=== PATIENT | male | born 1950 | race Caucasian/White ===

== ENCOUNTER 2021-09-19 17:14 | Outpatient (REF) | payer MEDICARE, SELFPAY ==
[2021-09-19 21:51] LABS: ALT 31 U/L (16-63); AST 17 U/L (15-37); Albumin 3.6 g/dL (3.4-5.0); Alkaline Phosphatase 73 U/L (46-116); Anion Gap 7.4 mmol/L (3-11); BUN 16 mg/dL (7-18); Bilirubin, Total 0.7 mg/dL (0.2-1.0); CO2 26.6 mmol/L (21.0-32.0); CREATININE 0.8 mg/dL (0.70-1.30); Calcium 8.8 mg/dL (8.5-10.1); Calculated LDL 71 mg/dL (<100); Chloride 107 mmol/L (98-107); Cholesterol 165 mg/dL (<200); Glucose 97 mg/dL (74-106); HDL Cholesterol 54 mg/dL (40-60); Potassium 4.4 mmol/L (3.5-5.1); Sodium 141 mmol/L (136-145); Total Protein 6.8 g/dL (6.4-8.2); Triglyceride 200 mg/dL (<150)
== END 2021-09-19 17:15 | disposition home or self-care (01) ==
LOC: NCHCN 17:14
PROVIDERS: Visit Provider Nurse Practitioner Family
DX: M85.88 Other specified disorders of bone density and structure, other site (principal); Z00.00 Encounter for general adult medical examination without abnormal findings
CPT/HCPCS: 80053; 80061; 82306

== ENCOUNTER 2022-10-04 17:55 | Outpatient (REF) | payer MEDICARE, SELFPAY ==
[2022-10-04 21:13] LABS: Abs Immature Grans 0.02 10^3/uL (0.0-0.06); Absolute Basophil Count 0.12 10^3/uL (0.0-0.2); Absolute Lymphocyte Count 3.41 10^3/uL (1.2-3.4); Absolute Monocyte Count 0.57 10^3/uL (0.1-0.8); Absolute Neutrophil Count 4.58 10^3/uL (1.2-6.7); Basophils % 1.3; Eosinophils % 2.2; HCT 47.8 % (40.0-50.0); HGB 15.7 g/dL (13.5-17.5); Immature Grans % 0.2; Lymphocytes % 38.3; MCH 28.5 pg (27.0-33.0); MCHC 32.8 % (32.0-36.0); MCV 87 fL (80-95); MPV 10.7 fL (8.0-11.0); Monocytes % 6.4; Neutrophils % 51.6; Platelet Count 307 10^3/uL (130-400); RDW 14.1 % (11.8-14.1); RDW-SD 45.2 fL
[2022-10-04 21:26] LABS: Iron 59 ug/dL (65-175); Total Iron Binding Capacity 397 ug/dL (250-450); Transferrin Sat 15 % (20-55)
[2022-10-04 21:42] LABS: ALT 28 U/L (16-63); AST 24 U/L (15-37); Albumin 3.8 g/dL (3.4-5.0); Alkaline Phosphatase 67 U/L (46-116); Anion Gap 4.9 mmol/L (3-11); BUN 10 mg/dL (7-18); Bilirubin, Total 0.7 mg/dL (0.2-1.0); CO2 26.1 mmol/L (21.0-32.0); CREATININE 0.9 mg/dL (0.70-1.30); Calcium 9.3 mg/dL (8.5-10.1); Chloride 107 mmol/L (98-107); Estimated GFR 90.18 (mL/min/1.73m2); Ferritin 28 ng/mL (26-388); Glucose 97 mg/dL (74-106); Sodium 138 mmol/L (136-145)
[2022-10-04 22:03] LABS: FREE T4 0.91 ng/dL (0.76-1.46)
[2022-10-05 18:24] LABS: PSA, Screening 8.6 ng/mL (<=6.5)
== END 2022-10-04 17:56 | disposition home or self-care (01) ==
LOC: NCHCN 17:55
PROVIDERS: Visit Provider Family Medicine
DX: E04.1 Nontoxic single thyroid nodule (principal); M85.88 Other specified disorders of bone density and structure, other site; Z12.5 Encounter for screening for malignant neoplasm of prostate; E61.1 Iron deficiency; R97.20 Elevated prostate specific antigen [PSA]
CPT/HCPCS: 80053; 84153; 82728; 83540; 83550; 84439; 84443; 85025

== ENCOUNTER → 2024-04-02 02:01 | Outpatient (CLI) | payer MEDICARE, SELFPAY ==
--- NOTE | 2024-04-02 | DI.US_ITS ---
Exam(s) US THYROID EXAM: US Thyroid CLINICAL HISTORY: Lt thyroid nodule, large heterogeneous mixed cystic and solid, E04.1. TECHNIQUE: Ultrasound thyroid performed using standard protocol. COMPARISON: This patient has had prior thyroid imaging studies as well as prior left thyroid lobe bi [facility]. He denies being told that he ever had a cancer diagnosis of the thyroid. At the time of this dictation the prior thyroid imaging studies and pathology report have not been obta ined. FINDINGS: RIGHT THYROID LOBE: Measures 1.4 cm AP x 1.1 cm wide x 4.9 cm craniocaudal There are 2 small sub cm findings in the right lobe which are not significant at this time. Main fin dings are in the left lobe. ISTHMUS: Normal thickness. There are no nodules in the isthmus. LEFT THYROID LOBE: Measures 3.3 cm AP x 3.4 wide x 5 cm craniocaudal There are 3 findings/nodules in the left lobe which will be discussed starting with the most superior . Nodule #1. This nodule is located superolaterally and measures 0.9 by 0.7 x 0.6 cm Tirads grading for this nodule is as follows: Composition: Solid-2 points Echogenicity: Isoechoic to surrounding parenchyma-1 point Shape: Slightly taller than wider in the transverse plane-3 points Margin: Smooth-0 points Echogenic Foci: Contains both peripheral and punctate echogenic foci-5 points Total points for this nodule: 11 ACR Ti-Rads Category: 5 This suspicious appearing nodule measures slightly less than 1 cm (0.9 cm in longest measurement whic h is craniocaudal) and therefore fall slightly short of requiring ultrasound-guided FNA. With regards to the remaining 2 findings in the left thyroid lobe common is difficult to determine if the more superior of these 2 is actually part of the more inferior nodule. There will be discussed separately as they are significantly different in appearance. Nodule #2 Size: Measures 2.8 x 3.3 x 2.1 cm Composition: Appears cystic with constantly moving echogenic foci therein Echogenicity: Shape: Wider than taller in the transverse plane-0 points Margin: Smooth-0 points Echogenic Foci: Not applicable as all internal contents are in constant motion Total Points for this nodule: Not graded ACR Ti-Rads Category: Not graded Nodule #3 . This is the largest finding which occupies the lower half of the left lobe and measures 4.6 x 3.6 x 3.5 cm. Composition: Partially solid partially cystic-mixed= 1 point Echogenicity: Solid components are isoechoic to the gland parenchyma= 1 point Shape: Taller than wider in the transverse plane-3 points Margin: Smooth-0 points Echogenic Foci: Contains punctate echogenic foci-3 points Total points for this nodule: 8 ACR Ti-Rads Category: 5 This TR 5 level nodule should undergo ultrasound-guided FNA as it measures greater than 1 cm. LYMPH NODES: There is no significant adenopathy. IMPRESSION: 1. There are 3 findings in the left thyroid lobe. The largest which is a mixed solid cystic nodule m easuring 4.6 x 3.6 x 3.5 cm register is as a TR 5 level nodule and requires ultrasound-guided FNA. A t the same time that this is performed I recommend FNA aspiration of the contents of nodule #2 descr ibed above which is contiguous with the dominant nodule. 2. The smallest nodule (which is the most superiorly located in the left lobe) is also TR 5 level but can be watched as it measures slightly less than 1 cm 3. There is no significant lymphadenopathy. please note that this patient has had prior imaging studies and ultrasound-guided FNA of the left thyroid gland performed the [facility], apparently ???prior to Covid according to the vidal nt. An addendum will follow if the studies are obtained. We will also attempt to acquire the pathol ogy report from the prior FNA performed at [facility]. DATA REPOSITORY:
== END ==
PROVIDERS: PCP Family Medicine; Visit Provider Family Medicine
DX: E04.2 Nontoxic multinodular goiter (principal)
CPT/HCPCS: 76536

== ENCOUNTER → 2024-04-16 14:15 | Outpatient (BNVA) | payer MEDICARE, SELFPAY | PROVIDERS: PCP Family Medicine; Referring Provider Family Medicine; Visit Provider Psychiatry & Neurology Neurology | DX: I63.9 Cerebral infarction, unspecified (principal) | CPT/HCPCS: 99205 ==

== ENCOUNTER 2025-02-12 09:06 | Outpatient (REF) | payer MEDICARE, SELFPAY ==
[2025-02-12 18:23] LABS: ALT 31 U/L (16-63); AST 25 U/L (15-37); Albumin 3.4 g/dL (3.4-5.0); Alkaline Phosphatase 80 U/L (46-116); Anion Gap 7.4 mmol/L (3-11); BUN 17 mg/dL (7-18); Bilirubin, Total 0.7 mg/dL (0.2-1.0); CO2 26.6 mmol/L (21.0-32.0); CREATININE 0.8 mg/dL (0.70-1.30); Calcium 9.1 mg/dL (8.5-10.1); Calculated LDL 50 mg/dL (<100); Chloride 106 mmol/L (98-107); Cholesterol 121 mg/dL (<200); Estimated GFR 91.72 (mL/min/1.73m2); Glucose 101 mg/dL (74-106); HDL Cholesterol 63 mg/dL (>or=40); Potassium 4.3 mmol/L (3.5-5.1); Sodium 140 mmol/L (136-145); Total Protein 6.7 g/dL (6.4-8.2); Triglyceride 44 mg/dL (<150)
== END 2025-02-12 09:07 | disposition home or self-care (01) ==
LOC: NCHCN 09:06
PROVIDERS: PCP Family Medicine; Visit Provider Family Medicine
DX: I63.9 Cerebral infarction, unspecified (principal)
CPT/HCPCS: 80053; 80061

== ENCOUNTER 2025-03-30 02:24 | Outpatient (CLI) | payer MEDICARE, SELFPAY ==
--- NOTE | 2025-03-30 06:45 | DI.US_ITS ---
Exam(s) US THYROID EXAM: US THYROID CLINICAL HISTORY: 1 year f/u,Pt declined FNA,MULTINODULAR THYROID,E04.2. TECHNIQUE: Ultrasound thyroid performed using standard protocol. COMPARISON: US US THYROID from 04/02/2024 FINDINGS: ISTHMUS: 0.1 mm RIGHT LOBE: Size: 5.1 x 1.6 x 1.5 cm Echogenicity: Normal. Vascularity: Normal. Nodules: There are small nodules present in the right lobe. No nodules are seen that warrant biopsy or follow-up. LEFT LOBE: Size: 7.2 x 2.9 x 3.0 cm Echogenicity: Normal. Vascularity: Normal. Nodules: There is again seen a 3.0 x 2.7 x 3.0 cm cystic nodule in the mid left lobe. There is internal debris noted. There is a stable nodule in the superior aspect of the left lobe measuring 0.8 x 0.8 x 0.7 cm. This compares to 0.9 x 0.7 x 0.6 cm on the prior examination. It is taller than wide and is isoechoic. Echogenic foci are present. It is consistent with a TI rads level 5 nodule. Due to its size, follow-up is recommended. There is again seen a complex mixed cystic and solid nodule in the inferior pole. Previously this was measured as 1 nodule and remains stable in size and appearance. There are punctate echogenic foci present. It is consistent with a TI rads level 4 nodule. Using similar measuring techniques, the nodule shows no significant change in size. It measures 3.0 craniocaudad by 3.7 AP by 3.4 transverse cm. This compares to 3.2 by 3.6 x 3.5 cm. Due to its size, FNA is recommended. OTHER FINDINGS: None. IMPRESSION: Stable thyroid nodules as described above. DATA REPOSITORY:
== END 2025-03-30 02:44 ==
PROVIDERS: PCP Family Medicine; Visit Provider Registered Nurse Maternal Newborn
DX: E04.2 Nontoxic multinodular goiter (principal)
CPT/HCPCS: 76536

== ENCOUNTER 2025-05-07 17:57 | Outpatient (REF) | payer MEDICARE, SELFPAY ==
[2025-05-07 20:40] LABS: HCT 42.2 % (40.0-50.0); HGB 13.3 g/dL (13.5-17.5); MCH 26.0 pg (27.0-33.0); MCHC 31.5 % (32.0-36.0); MCV 83 fL (80-95); MPV 10.9 fL (8.0-11.0); Platelet Count 309 10^3/uL (130-400); RBC 5.11 10^6/uL (4.36-5.78); RDW 14.5 % (11.8-14.1); RDW-SD 44.1 fL; WBC 10.23 10^3/uL (4.4-10.8)
[2025-05-07 20:43] LABS: ESR 13 mm/hr (0-20)
[2025-05-07 20:54] LABS: ALT 28 U/L (16-63); AST 21 U/L (15-37); Albumin 3.3 g/dL (3.4-5.0); Alkaline Phosphatase 92 U/L (46-116); Anion Gap 8.8 mmol/L (3-11); BUN 16 mg/dL (7-18); Bilirubin, Total 0.5 mg/dL (0.2-1.0); C-Reactive Protein 0.53 mg/dL (<or=0.5); CO2 25.2 mmol/L (21.0-32.0); Calcium 9.1 mg/dL (8.5-10.1); Chloride 108 mmol/L (98-107); Estimated GFR 95.49 (mL/min/1.73m2); Glucose 114 mg/dL (74-106); Potassium 4.3 mmol/L (3.5-5.1); Sodium 142 mmol/L (136-145); Total Protein 6.9 g/dL (6.4-8.2)
== END 2025-05-07 17:58 | disposition home or self-care (01) ==
LOC: NCHCN 17:57
PROVIDERS: PCP Family Medicine; Visit Provider Family Medicine
DX: M13.0 Polyarthritis, unspecified (principal)
CPT/HCPCS: 80053; 85027; 85652; 86140